=== PATIENT | female | born 1970 | race Caucasian/White ===

== ENCOUNTER → 2016-12-02 | Outpatient (CLI) | payer BC ==
[~2016-12-02] MED LIST: ALBUAER19 INH; ASPI-390 PO; BECL0.3A PO; CALC1CHW47 PO; CETI10TA84 PO; CLXUNK PO; COEN100C15 PO; DICL1GEL12 TD; FERR1TAB23 PO; KRIL1CAP7 PO; MOME50SP5 NAE; MULT1CHW4 PO; OMEP20CA59 PO; ONDA4TAB7 SL; SIMV20TA2 PO; [UNRECOGNIZED DRUG - OTHER]
[2016-12-02 13:10] LABS: BASO % 0.2 %; BASO ABS # 0.01 K/uL (0-0.2); COMPLETE YES; EOS % 3.2 %; HEMATOCRIT 40.4 % (37-47); IG% 0.2 %; LYMPH % 30.5 %; LYMPH ABS # 1.73 K/uL (1.2-3.4); MEAN CELL VOLUME 86.5 fL (80-100); MEAN CORPUSCULAR HEMOGLOBIN 28.3 pg (25-34); MEAN CORPUSCULAR HGB CONC 32.7 g/dl (32-36); MEAN PLATELET VOLUME 9.5 fL (7.4-10.4); MONO % 5.6 %; NEUT % 60.3 %; PLATELET COUNT 274 K/uL (130-400); RED BLOOD COUNT 4.67 M/uL (4.2-5.4); WHITE BLOOD COUNT 5.67 K/uL (4.8-10.8)
[2016-12-02 13:45] LABS: BLOOD UREA NITROGEN 6 mg/dl (7-18); BUN/CREATININE RATIO 8.8 (10-20); CALCIUM 9.3 mg/dl (8.5-10.1); CARBON DIOXIDE 30 mmol/L (21-32); CHLORIDE 103 mmol/L (98-107); CHOLESTEROL 271 mg/dl (0-200); CREATININE 0.72 mg/dl (0.60-1.20); GLUCOSE 83 mg/dl (70-99); POTASSIUM 4.1 mmol/L (3.5-5.1); SODIUM 138 mmol/L (136-145); TRIGLYCERIDES 206 mg/dl (0-150); VERY LOW DENSITY LIPOPROT CALC 41 mg/dl
[2016-12-02 13:49] LABS: CHOLESTEROL/HDL RATIO 3.7; HDL CHOLESTEROL 73 mg/dl; LDL CHOLESTEROL CALCULATED 157 mg/dl
[2016-12-02 14:24] LABS: URINE APPEARANCE CLOUDY (CLEAR); URINE BILIRUBIN NEG (NEG); URINE COLOR ORANGE; URINE EPITHELIAL CELL AUTO >30 /lpf (0-5); URINE NITRITE NEG (NEG); URINE PH 7.5 (4.5-7.5); URINE SPECIFIC GRAVITY 1.018 (1.000-1.030); UROBILINOGEN NEG (NEG); ZZUR CULT IF INDIC CLEAN CATCH NO
[2016-12-02 14:38] LABS: MANUAL MICROSCOPIC REQUIRED? NO; REVIEW REQ? NO; SULFASALICYLIC ACID POS (NEG)
[2016-12-02 15:12] LABS: RATIO 499.4 mcg/mg (0-30.0)
== END | disposition home or self-care (01) ==
LOC: C.LAB1850 11:57
PROVIDERS: ATTEND Internal Medicine
DX: R31.9 Hematuria, unspecified (principal); R80.9 Proteinuria, unspecified; E78.00 Pure hypercholesterolemia, unspecified; D64.9 Anemia, unspecified

== ENCOUNTER → 2016-12-22 | Outpatient (CLI) | payer BC ==
[2016-12-22 12:54] LABS: PATIENT HEIGHT 167.6 cm
[2016-12-22 14:50] LABS: URINE APPEARANCE CLEAR (CLEAR); URINE BILIRUBIN NEG (NEG); URINE COLOR YELLOW; URINE EPITHELIAL CELL AUTO >30 /lpf (0-5); URINE NITRITE NEG (NEG); URINE PH 6.5 (4.5-7.5); URINE SPECIFIC GRAVITY 1.015 (1.000-1.030); UROBILINOGEN NEG (NEG)
[2016-12-22 14:52] LABS: MANUAL MICROSCOPIC REQUIRED? NO; REVIEW REQ? NO
[2016-12-22 14:59] LABS: BUN/CREATININE RATIO 9.5 (10-20); CREATININE 0.74 mg/dl (0.60-1.20); PHOSPHORUS 2.3 mg/dl (2.5-4.9); POTASSIUM 3.6 mmol/L (3.5-5.1)
[2016-12-22 15:06] LABS: URINE TOTAL PROTEIN 48.4 mg/dl (0-11.9)
[2016-12-22 15:07] LABS: URINE PROTIEN/CREAT RATIO 0.4 (0-0.2); URINE TOTAL PROTEIN 47.7 mg/dl (0-11.9)
[2016-12-22 15:14] LABS: CREATININE 0.74 mg/dl (0.6-1.2); URINE TOTAL PROTEIN CALC 556.6 mg/24 hr (0-149.1)
[2016-12-27 09:29] LABS: ALBUMIN 3.6 G/DL (3.8-4.8); ALBUMIN % 62.66 %; ALPHA-2-GLOBULIN % 10.85 %; BETA GLOBULIN % 11.77 %; CREATININE UR 112 MG/DL (20-320); TOTAL PROTEIN 6.6 G/DL (6.2-8.3)
== END | disposition home or self-care (01) ==
LOC: C.LAB1850 12:42
PROVIDERS: ATTEND Internal Medicine Nephrology
DX: R80.9 Proteinuria, unspecified (principal)

== ENCOUNTER → 2017-02-23 | Outpatient (CLI) | payer BC ==
--- NOTE | 2017-02-24 08:28 | MAMMOGRAPHY REPORT ---
BILATERAL DIGITAL SCREENING MAMMOGRAM TOMOSYNTHESIS WITH CAD: 02/23/2017 CLINICAL HISTORY: Routine screening. Patient has no complaints. TECHNIQUE: Breast tomosynthesis in addition to standard 2D mammography was performed. Current study was also evaluated with a Computer Aided Detection (CAD) system. COMPARISON: Comparison is made to exams dated: 02/18/2016 mammogram, 02/10/2015 mammogram - [facility], 07/26/2011 mammogram, and 07/15/2011 mammogram. BREAST COMPOSITION: The tissue of both breasts is heterogeneously dense, which may obscure small mas ses. FINDINGS: No suspicious masses, calcifications, or areas of architectural distortion are noted in ei ther breast. There has been no significant interval change compared to prior exams. Bilateral benign -appearing calcifications are not significantly changed. IMPRESSION: ACR BI-RADS CATEGORY 2: BENIGN There is no mammographic evidence of malignancy. A 1 year screening mammogram is recommended. The pa tient will receive written notification of the results. Approximately 10% of breast cancers are not detected with mammography. A negative mammographic report should not delay biopsy if a clinically suggestive mass is present. Juju Haskins M.D. ah/:02/23/2017 16:26:58 Circuit Board Repair Technician: Sherly GUTIERREZ(John)(M), [facility] letter sent: Normal 1/2 BI-RADS Code: ACR BI-RADS Category 2: Benign
== END | disposition home or self-care (01) ==
LOC: C.MAMM 16:05
PROVIDERS: ATTEND Internal Medicine
DX: Z12.31 Encounter for screening mammogram for malignant neoplasm of breast (principal)

== ENCOUNTER → 2017-03-13 | Outpatient (CLI) | payer BC | END | disposition home or self-care (01) | LOC: C.PAPS 10:48 | PROVIDERS: ATTEND Obstetrics & Gynecology | DX: Z01.419 Encounter for gynecological examination (general) (routine) without abnormal findings (principal) ==

== ENCOUNTER → 2017-06-13 | Outpatient (CLI) | payer BC ==
[2017-06-13 17:43] LABS: ALBUMIN 3.3 gm/dl (3.4-5.0); BLOOD UREA NITROGEN 12 mg/dl (7-18); CARBON DIOXIDE 32 mmol/L (21-32); CREATININE 0.58 mg/dl (0.60-1.20); GLUCOSE 81 mg/dl (70-99); PHOSPHORUS 3.1 mg/dl (2.5-4.9); POTASSIUM 3.4 mmol/L (3.5-5.1); SODIUM 135 mmol/L (136-145)
== END | disposition home or self-care (01) ==
LOC: C.LAB1850 16:17
PROVIDERS: ATTEND Internal Medicine Nephrology
DX: R80.9 Proteinuria, unspecified (principal)

== ENCOUNTER → 2017-12-19 | Outpatient (CLI) | payer BC ==
--- NOTE | 2017-12-19 10:18 | DIAGNOSTIC IMAGING REPORT ---
L HAND MIN 3 VIEWS ROUTINE CLINICAL HISTORY: M19.049,M13.0 pain COMPARISON: None. DISCUSSION: The bones and joint spaces appear intact. There is no evidence of fracture, dislocation or bony disease. There is no evidence for soft tissue swelling. IMPRESSION: Negative study. The above report was generated using voice recognition software. It may contain grammatical, syntax or spelling errors. Electronically signed by: Manuelito Cameron M.D. 12/19/2017 10:17 AM Dictated Date/Time: 12/19/2017 10:17 AM
--- NOTE | 2017-12-19 10:19 | DIAGNOSTIC IMAGING REPORT ---
R HAND MIN 3 VIEWS ROUTINE CLINICAL HISTORY: M19.049,M13.0 pain COMPARISON: None. DISCUSSION: The bones and joint spaces appear intact. There is no evidence of fracture, dislocation or bony disease. There is no evidence for soft tissue swelling. IMPRESSION: Negative study. The above report was generated using voice recognition software. It may contain grammatical, syntax or spelling errors. Electronically signed by: Manuelito Cameron M.D. 12/19/2017 10:18 AM Dictated Date/Time: 12/19/2017 10:17 AM
[2017-12-19 10:38] LABS: TRANSFERRIN 292 mg/dl (200-360)
== END | disposition home or self-care (01) ==
LOC: C.RAD1850 09:26
PROVIDERS: ATTEND Internal Medicine Rheumatology
DX: M19.049 Primary osteoarthritis, unspecified hand (principal); M13.0 Polyarthritis, unspecified

== ENCOUNTER → 2018-01-01 | Outpatient (CLI) | payer BC ==
[2018-01-01 12:20] LABS: BASO % 0.3 %; BASO ABS # 0.02 K/uL (0-0.2); EOS % 3.2 %; HEMATOCRIT 40.7 % (37-47); LYMPH % 30.4 %; LYMPH ABS # 1.89 K/uL (1.2-3.4); MEAN CELL VOLUME 87.5 fL (80-100); MEAN CORPUSCULAR HGB CONC 31.9 g/dl (32-36); MEAN PLATELET VOLUME 10.3 fL (7.4-10.4); MONO % 6.3 %; MONO ABS # 0.39 K/uL (0.11-0.59); NEUT % 59.8 %; NEUT ABS # 3.72 K/uL (1.4-6.5); PLATELET COUNT 284 K/uL (130-400); RED CELL DISTRIBUTION WIDTH CV 14.1 % (11.5-14.5); RED CELL DISTRIBUTION WIDTH SD 44.7 fL (36.4-46.3); WHITE BLOOD COUNT 6.22 K/uL (4.8-10.8)
[2018-01-01 12:36] LABS: ALBUMIN 3.1 gm/dl (3.4-5.0); BLOOD UREA NITROGEN 9 mg/dl (7-18); CALCIUM 8.7 mg/dl (8.5-10.1); CARBON DIOXIDE 27 mmol/L (21-32); CHOLESTEROL 271 mg/dl (0-200); CREATININE 0.66 mg/dl (0.60-1.20); GLUCOSE 85 mg/dl (70-99); LDL CHOLESTEROL CALCULATED 161 mg/dl; PHOSPHORUS 2.9 mg/dl (2.5-4.9); POTASSIUM 3.8 mmol/L (3.5-5.1); SODIUM 137 mmol/L (136-145)
== END | disposition home or self-care (01) ==
LOC: C.LAB1850 09:43
PROVIDERS: ATTEND Internal Medicine Nephrology
DX: R80.9 Proteinuria, unspecified (principal); E78.00 Pure hypercholesterolemia, unspecified

== ENCOUNTER 2019-08-05 21:13 | Inpatient (IN) ==
[2019-08-05] MEDS ORDERED: fentaNYL citrate 100 MCG/2 ML VIAL IV STA (21:52)
[2019-08-05] MEDS ORDERED: DiphenhydrAMINE HCL 50 MG/ML VIAL IV STA (21:52)
[2019-08-05] MEDS ORDERED: ONDANSETRON INJ 2 MG/ML 2 ML VIAL IV STA (21:52)
[2019-08-05] MEDS ORDERED: SODIUM CHLORIDE 0.9% 1000ML 1,000 ML IV ONE ×2 (21:52→23:12)
--- NOTE | 2019-08-05 22:01 | Emergency Department Note ---
ED Provider Note Name: SAADIA READ Age: 49 Sex: F Arrives Via: Walk-In Informant: Patient ED Provider: Pipe Ordonez MD Chief Complaint: Right Flank Pain Impression: Calculus of distal right ureter Hydronephrosis of right kidney Acute right flank pain Medical Decision Makin yr old female with acute onset right flank pain this evening. No history of renal colic thus met CT criteria given symptoms and pain to rule out other pathology including aaa, gb, bowel, etc. CT with 6mm distal stone with moderate hydro. UA without infection. Labs OK without renal insufficiency. Continued pain despite multiple narcotics. Fluids given as well. She is to avoid NSAIDs given previous renal issues thus no toradol given. Zofran helped with nausea and benadryl as previous allergy narcotics. With intractable pain will need to come in for further management. Triage/Nursing Notes reviewed by Me Differentials:Renal colic, UTI, appendicitis, diverticulitis, mesenteric ischemia, aortic pathology, infections, inflammatory bowel disease, PUD, biliary pathology, as well as other pathologies. Vital Signs: reviewed and remarkable for htn Interventions: saline lock, fentanyl 50mcg IV, dilaudid 1mg IV, dilaudid 0.5mg x 2, NSS bolus 1 L IV x 2, zofran 4mg IV, benadryl 25mg IV x 2 Labs:Reviewed and remarkable for no significant abnormalities Imaging:[facility] Radiologist interpretation reviewed by me: Right distal 6mm ureteral stone with moderate hydro Consults:Dr William Plan: Disposition:Hospitalization. Condition: Good Blood pressure:Elevated - Referred to PCP - [place] to be Situational. History of Present Illness:49 / F arrives for evaluation of right flank pain. Patient with several hours severe right flank pain. Sudden onset. Stabbing nature. Radiates to right abdomen. Nothing makes better nor worse. Associated nausea and vomiting. No previous symptoms like this previously. No history renal stones, gallbladder disease, nor aortic issues. She had Appendix removed previously. Admits dehydration last few days from not drinking enough. Denies trauma, injury, fall. No fevers, chills, sob, cp, urinary symptoms, diarrhea, leg swelling, rashes, headache, nor other symptoms. No medications prior to arrival. ROS: See above HPI for pertinent positives & negatives. A total of 10 systems reviewed and were otherwise negative. 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 EYES: No scleral icterus, unremarkable pupils. ENT: Mucous membranes moist, no nasal congestion. NECK: No masses appreciated, nomeningismus, trachea is midline. RESPIRATORY: No dyspnea. Clear to auscultation and equal bilaterally. No wheeze, no rhonchi. CARDIOVASCULAR: Regular rate and rhythm.No murmurs, rubs, gallops appreciated. GASTROINTESTINAL: Abdomen soft, non-tender, no peritonitis.Bowel sounds positive.No masses appreciated. BACK: No midline tenderness, no CVA tenderness EXTREMITIES: Normal motion all extremities, no cyanosis, no edema. NEUROLOGIC: Alert and oriented, no acute motor or sensory deficits, no focal weakness, cranial nerves grossly intact. SKIN: No rash, no jaundice, no diaphoresis. PSYCH: Appropriate GCS: 15 ED Course: Times/Reassessments: Mutliple, continued pain though becoming a bit more comfortable. Does not feel she can tolerate pain at home despite many rounds IV narcotics. Pipe Ordonez MD Impression & Plan Calculus of distal right ureter, Hydronephrosis of right kidney, Acute right flank pain Past Med/Surg History Medical History Allergic rhinitis due to animal dander (Chronic) Allergic rhinitis due to other allergen (Chronic) Allergic rhinitis due to pollen (Chronic) Anxiety disorder (Chronic) Chronic kidney disease, stage I (Chronic) Extrinsic asthma (Chronic) Fatigue (Chronic) Fibromyalgia (Chronic) Headache (Chronic) Hiatal hernia (Chronic) History of herpes zoster Hypercholesterolemia (Chronic) Microscopic hematuria (Chronic) Palindromic rheumatism, hand (Chronic) Plantar fasciitis (Chronic) Proteinuria (Chronic) Seronegative polyarthritis (Chronic) Vitamin D deficiency, unspecified (Chronic) Surgical History History of appendectomy History of esophagogastroduodenoscopy (EGD) Hx of colonoscopy Family History Grandfather (Maternal) Acute myocardial infarction Grandmother (Maternal) Breast cancer Uterine cancer Sister Hyperlipidemia Mother Hyperlipidemia Social History Preferred Language: Korean Communication Ability: Effective Sales Representative Graphic Art Required: No Beliefs That Will Affect Care: None marital status: Current Living Situation: Family Feels Safe at Home: Yes Smoking Status: Never smoker Second Hand Exposure: No ; Hx Alcohol Use: No Hx Substance Use: No Physical Activity Frequency: Does not Exercise Results & Data Vital Signs Vital Signs - 24 hr 08/05/19 21:17 08/05/19 23:13 Temperature 36.7 C Temperature Source Oral Pulse Rate 81 Pulse Rate [Finger] 86 Respiratory Rate 20 20 Respiratory Effort / Characteristics Non-Labored Spontaneous Respiratory Depth Normal Blood Pressure 138/77 Blood Pressure [Right Arm] 141/78 H Blood Pressure Mean 97 Blood Pressure Mean [Right Arm] 99 Blood Pressure Position Sitting Blood Pressure Position [Right Arm] Lying Pulse Oximetry 98 96 Oxygen Delivery Method Room Air Sepsis Recent Fever Within 48 Hours No Sepsis New/Unexplained Change in Mental Status No Sepsis Action Taken by Nursing No Action Required Laboratory Data Result diagrams: 08/05/19 22:15 08/05/19 22:15 Lab Results 08/05/19 08/05/19 08/05/19 Range/Units 22:15 22:15 22:25 WBC 10.18 (4.8-10.8) K/uL RBC 4.41 (4.2-5.4) M/uL Hgb 12.0 (12.0-16.0) g/dL Hct 38.0 (37-47) % MCV 86.2 (80-100) fL MCH 27.2 (25-34) pg MCHC 31.6 L (32-36) g/dL RDW Std Deviation 44.2 (36.4-46.3) fL RDW Coeff of Aldo 14.0 (11.5-14.5) % Plt Count 272 (130-400) K/uL MPV 10.0 (7.4-10.4) fL Immature Gran % (Auto) 0.2 % Neut % (Auto) 69.9 % Lymph % (Auto) 20.3 % [place] % (Auto) 7.2 % Eos % (Auto) 2.2 % Baso % (Auto) 0.2 % Immature Gran # (Auto) 0.02 (0.00-0.02) K/uL Neut # (Auto) 7.12 H (1.4-6.5) K/uL Lymph # (Auto) 2.07 (1.2-3.4) K/uL [place] # (Auto) 0.73 H (0.11-0.59) K/uL Eos # (Auto) 0.22 (0-0.5) K/uL Baso # (Auto) 0.02 (0-0.2) K/uL Sodium 137 (136-145) mmol/L Potassium 3.3 L (3.5-5.1) mmol/L Chloride 104 (98-107) mmol/L Carbon Dioxide 28 (21-32) mmol/L Anion Gap 5.0 (3-11) BUN 10 (7-18) mg/dl Creatinine 0.77 (0.6-1.2) mg/dl Est Cr Clr Drug Dosing 98.1 ml/min Est GFR ( Amer) 106.6 Est GFR (Non-Af Amer) 91.9 BUN/Creatinine Ratio 12.5 (10-20) Glucose 92 (70-99) mg/dl Calcium 8.8 (8.5-10.1) mg/dl Total Bilirubin 0.2 (0.2-1) mg/dl Direct Bilirubin < 0.1 (0-0.2) mg/dl AST 15 (15-37) U/L ALT 19 (12-78) U/L Alkaline Phosphatase 109 (45-117) U/L Total Protein 7.4 (6.4-8.2) gm/dl Albumin 3.1 L (3.4-5.0) gm/dl Lipase 220 (73-393) U/L Urine Color Urine Appearance (Clear) Urine pH (4.5-7.5) Ur Specific [place] (1.000-1.030) Urine Protein (Negative) Urine Glucose (UA) (Negative) Urine Ketones (Negative) Urine Blood (Negative) Urine Nitrite (Negative) Urine Bilirubin (Negative) Urine Urobilinogen (Negative) Ur Leukocyte Esterase (Negative) Urine WBC (Auto) (0-5) /hpf Urine RBC (Auto) (0-4) /hpf U Hyaline Cast (Auto) (0-5) /lpf U Epithel Cells (Auto) (0-5) /lpf Urine Bacteria (Auto) (Negative) Urine Test Negative (Negative) 08/05/19 Range/Units 22:25 WBC (4.8-10.8) K/uL RBC (4.2-5.4) M/uL Hgb (12.0-16.0) g/dL Hct (37-47) % MCV (80-100) fL MCH (25-34) pg MCHC (32-36) g/dL RDW Std Deviation (36.4-46.3) fL RDW Coeff of Aldo (11.5-14.5) % Plt Count (130-400) K/uL MPV (7.4-10.4) fL Immature Gran % (Auto) % Neut % (Auto) % Lymph % (Auto) % [place] % (Auto) % Eos % (Auto) % Baso % (Auto) % Immature Gran # (Auto) (0.00-0.02) K/uL Neut # (Auto) (1.4-6.5) K/uL Lymph # (Auto) (1.2-3.4) K/uL [place] # (Auto) (0.11-0.59) K/uL Eos # (Auto) (0-0.5) K/uL Baso # (Auto) (0-0.2) K/uL Sodium (136-145) mmol/L Potassium (3.5-5.1) mmol/L Chloride (98-107) mmol/L Carbon Dioxide (21-32) mmol/L Anion Gap (3-11) BUN (7-18) mg/dl Creatinine (0.6-1.2) mg/dl Est Cr Clr Drug Dosing ml/min Est GFR ( Amer) Est GFR (Non-Af Amer) BUN/Creatinine Ratio (10-20) Glucose (70-99) mg/dl Calcium (8.5-10.1) mg/dl Total Bilirubin (0.2-1) mg/dl Direct Bilirubin (0-0.2) mg/dl AST (15-37) U/L ALT (12-78) U/L Alkaline Phosphatase (45-117) U/L Total Protein (6.4-8.2) gm/dl Albumin (3.4-5.0) gm/dl Lipase (73-393) U/L Urine Color Yellow Urine Appearance Clear (Clear) Urine pH 5.0 (4.5-7.5) Ur Specific [place] 1.021 (1.000-1.030) Urine Protein 2+ H (Negative) Urine Glucose (UA) Negative (Negative) Urine Ketones Negative (Negative) Urine Blood 3+ H (Negative) Urine Nitrite Negative (Negative) Urine Bilirubin Negative (Negative) Urine Urobilinogen Negative (Negative) Ur Leukocyte Esterase Negative (Negative) Urine WBC (Auto) 1-5 (0-5) /hpf Urine RBC (Auto) 10-30 H (0-4) /hpf U Hyaline Cast (Auto) 1-5 (0-5) /lpf U Epithel Cells (Auto) >30 H (0-5) /lpf Urine Bacteria (Auto) Negative (Negative) Urine Test (Negative) Administered Medications Discontinued Medications Acetaminophen (Tylenol) 650 mg PO Q4H PRN PRN Reason: pain/fever Stop: 09/05/19 01:50 Last Admin: 08/06/19 09:36 Dose: 650 mg Documented by: [id number] Admin: 08/06/19 02:58 Dose: 650 mg Documented by: [id number] Cetirizine HCl (Zyrtec) 10 mg PO PM PHAN Stop: 09/05/19 20:59 Last Admin: 08/06/19 21:23 Dose: 10 mg Documented by: [id number] Citalopram Hydrobromide (Celexa) 40 mg PO QPM PHAN Stop: 09/05/19 01:50 Last Admin: 08/06/19 21:22 Dose: 40 mg Documented by: [id number] Admin: 08/06/19 02:30 Dose: 40 mg Documented by: [id number] Diphenhydramine HCl (Benadryl) 25 mg IV NOW STA Stop: 08/05/19 21:53 Last Admin: 08/05/19 22:11 Dose: 25 mg Documented by: [id number] Diphenhydramine HCl (Benadryl) 25 mg IV NOW STA Stop: 08/06/19 00:04 Last Admin: 08/06/19 00:09 Dose: 25 mg Documented by: [id number] Fentanyl Citrate (Fentanyl Citrate) 50 mcg IV NOW STA Stop: 08/05/19 21:53 Last Admin: 08/05/19 22:11 Dose: 50 mcg Documented by: [id number] Gabapentin (Neurontin) 200 mg PO QPM PHAN Stop: 09/05/19 01:50 Last Admin: 08/06/19 21:22 Dose: 200 mg Documented by: [id number] Admin: 08/06/19 02:29 Dose: 200 mg Documented by: [id number] Hydromorphone HCl (Dilaudid) 1 mg IV NOW STA Stop: 08/05/19 22:37 Last Admin: 08/05/19 22:44 Dose: 1 mg Documented by: [id number] Hydromorphone HCl (Dilaudid) 0.5 mg IV NOW STA Stop: 08/05/19 23:02 Last Admin: 08/05/19 23:16 Dose: 0.5 mg Documented by: [id number] Hydromorphone HCl (Dilaudid) 0.5 mg IV NOW STA Stop: 08/06/19 00:04 Last Admin: 08/06/19 00:11 Dose: 0.5 mg Documented by: [id number] Sodium Chloride (Nss 1000ml) 1,000 mls @ 999 mls/hr IV .Q1H1M ONE Stop: 08/05/19 22:52 Last Infusion: 08/05/19 23:17 Dose: 0 mls/hr Documented by: [id number] Admin: 08/05/19 22:11 Dose: 999 mls/hr Documented by: [id number] Sodium Chloride (Nss 1000ml) 1,000 mls @ 999 mls/hr IV .Q1H1M ONE Stop: 08/06/19 00:12 Last Infusion: 08/06/19 00:15 Dose: 0 mls/hr Documented by: [id number] Admin: 08/05/19 23:10 Dose: 999 mls/hr Documented by: [id number] Sodium Chloride (Nss 1000ml) 1,000 mls @ 125 mls/hr IV .Q8H PHAN Stop: 09/05/19 01:50 Last Infusion: 08/07/19 12:20 Dose: 0 mls/hr Documented by: [id number] Admin: 08/07/19 08:15 Dose: 125 mls/hr Documented by: [id number] Infusion: 08/07/19 08:15 Dose: 125 mls/hr Documented by: [id number] Admin: 08/07/19 00:59 Dose: 125 mls/hr Documented by: [id number] Infusion: 08/07/19 00:59 Dose: 125 mls/hr Documented by: [id number] Infusion: 08/06/19 22:42 Dose: 125 mls/hr Documented by: [id number] Admin: 08/06/19 17:02 Dose: 125 mls/hr Documented by: [id number] Infusion: 08/06/19 17:02 Dose: 125 mls/hr Documented by: [id number] Infusion: 08/06/19 14:00 Dose: 125 mls/hr Documented by: [id number] Admin: 08/06/19 09:28 Dose: 125 mls/hr Documented by: [id number] Infusion: 08/06/19 09:28 Dose: 125 mls/hr Documented by: [id number] Admin: 08/06/19 01:58 Dose: 125 mls/hr Documented by: [id number] Ciprofloxacin (Cipro) 400 mg in 200 mls @ 100 mls/hr IV PREOP PHAN; Protocol Stop: 08/06/19 07:59 Last Infusion: 08/06/19 17:11 Dose: 0 mls/hr Documented by: [id number] Admin: 08/06/19 15:24 Dose: 100 mls/hr Documented by: [id number] Iothalamate Meglumine (Cysto-Conray Ii) Confirm Administered Dose 250 ml .ROUTE .STK-MED ONE Stop: 08/06/19 15:21 Last Admin: 08/06/19 17:01 Dose: Not Given Documented by: [id number] Ketorolac Tromethamine (Toradol) 30 mg IV Q6H PRN PRN Reason: Pain Stop: 08/11/19 01:57 Last Admin: 08/06/19 23:32 Dose: 30 mg Documented by: [id number] Admin: 08/06/19 13:04 Dose: 30 mg Documented by: [id number] Losartan Potassium (Cozaar) 100 mg PO QPM PHAN Stop: 09/05/19 01:50 Last Admin: 08/06/19 21:22 Dose: 100 mg Documented by: [id number] Admin: 08/06/19 02:30 Dose: 100 mg Documented by: [id number] Miscellaneous (Order Awaiting Action) 1 ea N/A QS [facility] Stop: 09/05/19 07:59 Last Admin: 08/06/19 09:28 Dose: Not Given Documented by: [id number] Montelukast Sodium (Singulair) 10 mg PO QPM PHAN Stop: 09/05/19 01:50 Last Admin: 08/06/19 21:22 Dose: 10 mg Documented by: [id number] Admin: 08/06/19 02:30 Dose: 10 mg Documented by: [id number] Ondansetron HCl (Zofran) 4 mg IV NOW STA Stop: 08/05/19 21:53 Last Admin: 08/05/19 22:11 Dose: 4 mg Documented by: [id number] Discharge Plan Visit Data *Final* Discharge Date/Time: 08/06/19 01:38 Chief Complaint: Abdominal Pain Stated Complaint: ABD PAIN ED Provider: Pipe Ordonez Discharge Problem: Calculus of distal right ureter, Hydronephrosis of right kidney, Acute right flank pain Patient Disposition: Admitted As Inpatient Condition: Good Discharge Instructions Interventions: ED Discharge Assessment Last Done: 08/06/19 01:38
[2019-08-05 22:29] LABS: Basophils # (auto) 0.02 K/uL (0-0.2); Basophils % (auto) 0.2 %; Eosinophils # (auto) 0.22 K/uL (0-0.5); Eosinophils % (auto) 2.2 %; Immature Granulocytes # (auto) 0.02 K/uL (0.00-0.02); Immature Granulocytes % (auto) 0.2 %; Lymphocytes # (auto) 2.07 K/uL (1.2-3.4); Lymphocytes % (auto) 20.3 %; Mean Corpuscular Hemoglobin 27.2 pg (25-34); Mean Corpuscular Hgb Conc 31.6 g/dL (32-36); Mean Corpuscular Volume 86.2 fL (80-100); Monocytes # (auto) 0.73 K/uL (0.11-0.59); Monocytes % (auto) 7.2 %; Neutrophils # (auto) 7.12 K/uL (1.4-6.5); Neutrophils % (auto) 69.9 %; Platelet Count 272 K/uL (130-400); RDW Standard Deviation 44.2 fL (36.4-46.3); Red Blood Count 4.41 M/uL (4.2-5.4); White Blood Count 10.18 K/uL (4.8-10.8)
[2019-08-05] MEDS ORDERED: HYDROmorphone INJ 1 MG/ML SYRINGE IV STA (22:36)
--- NOTE | 2019-08-05 22:42 | CT Scan Report ---
CT SCAN OF THE ABDOMEN AND PELVIS WITHOUT IV CONTRAST CLINICAL HISTORY: Right flank pain. COMPARISON STUDY: IV pyelogram dated 03/08/2013. Chest CT dated 12/20/2012. TECHNIQUE: CT scan of the abdomen and pelvis is performed from the lung bases to the proximal femora. Images are reviewed in the axial, sagittal, and coronal planes. IV contrast was not administered for this examination. A dose lowering technique was utilized adhering to the principles of ALARA. CT DOSE: 637.86 mGy.cm FINDINGS: Lung bases: The heart is normal in size and without pericardial effusion. There is no airspace consol idation or pleural effusion. There are 2 left lower lobe pulmonary nodules which measure up to 4 mm s een on images #39 and #43. These are unchanged from 2013 and of doubtful significance. Liver: The unenhanced liver is normal in size, contour, and attenuation. There is no intrahepatic catalina iary ductal dilatation. There are at least 3 low attenuation hepatic lesions which measure up to 2.6 cm which measure water density. Gallbladder: Unremarkable. Spleen: Normal in size and attenuation. Pancreas: Unremarkable. Adrenal glands: Unremarkable. Kidneys: The unenhanced kidneys are normal in size. The right kidney is slightly edematous. There is a 6 mm obstructing calculus located just above the right vesicoureteral junction seen on image #350. This causes moderate right hydroureteronephrosis. There is associated perinephric and periureteric st randing/fluid. No additional calculi are identified in either kidney. There is no left-sided hydronep hrosis. There is no evidence of contour deforming renal mass lesion. Abdominal vasculature: The abdominal aorta is normal in course and caliber. Bowel: There is moderate colonic fecal retention. No bowel obstruction is seen. The appendix is nonv isualized. Peritoneum: There is no intraperitoneal free air or abdominal ascites. There is a fat-containing umbi lical hernia. Lymphadenopathy: None. Pelvic viscera: Although decompressed, the bladder wall appears thickened and there is pericystic inf lammation. The uterus and adnexa are normal as visualized. Skeletal structures: No lytic or blastic lesions are seen. IMPRESSION: 1. There is a 6 mm obstructing calculus in the distal right ureter located just above the vesicourete ral junction. This causes moderate right hydroureteronephrosis. 2. No additional calculi are identified in either kidney. 3. Although decompressed, the bladder wall appears thickened and there is mild pericystic inflammatio n. Correlate clinically and with urinalysis for evidence of cystitis. 4. There are least 3 low attenuation hepatic lesions which were not clearly seen on the [address] . These measure water density and likely represent cysts, possibly with minimal complexity. These are of low suspicion and follow-up with a nonemergent ultrasound of the liver is recommended for further assessment. ACT 112: Negative or not required by law. Electronically signed by: Art Wilkes M.D. 08/05/2019 10:41 PM
[2019-08-05 22:44] LABS: Alanine Aminotransferase 19 U/L (12-78); Albumin Level 3.1 gm/dl (3.4-5.0); Aspartate Aminotransferase 15 U/L (15-37); BUN Creatinine Ratio 12.5 (10-20); Bilirubin Direct < 0.1 mg/dl (0-0.2); Blood Urea Nitrogen 10 mg/dl (7-18); Calcium 8.8 mg/dl (8.5-10.1); Carbon Dioxide 28 mmol/L (21-32); Chloride 104 mmol/L (98-107); Creatinine Clr Calc Pharmacy 98.1 ml/min; Est GFR (African American) 106.6; Est GFR (Non-African American) 91.9; Glucose 92 mg/dl (70-99); Lipase 220 U/L (73-393); Potassium 3.3 mmol/L (3.5-5.1); Sodium 137 mmol/L (136-145)
[2019-08-05 22:46] LABS: Pregnancy Test, Urine Negative (Negative)
[2019-08-05 22:47] LABS: Alkaline Phosphatase 109 U/L (45-117); Bilirubin,Total 0.2 mg/dl (0.2-1); Total Protein 7.4 gm/dl (6.4-8.2)
[2019-08-05 22:48] LABS: Appearance Urine Clear (Clear); Bacteria Urine Automated Negative (Negative); Bilirubin Urine Negative (Negative); Blood Urine 3+ (Negative); Color Urine Yellow; Epithelial Cell Urine Auto >30 /lpf (0-5); Glucose Urine UA Negative (Negative); Ketones Urine Negative (Negative); Leukocyte Esterase Urine Negative (Negative); Nitrite Urine Negative (Negative); Protein Urine 2+ (Negative); Specific Gravity Urine 1.021 (1.000-1.030); Urobilinogen Urine Negative (Negative)
[2019-08-05] MEDS ORDERED: HYDROmorphone INJ 0.5 MG/0.5 ML SYR IV STA (23:01)
[2019-08-06] MEDS ORDERED: DiphenhydrAMINE HCL 50 MG/ML VIAL IV STA (00:03)
[2019-08-06] MEDS ORDERED: HYDROmorphone INJ 0.5 MG/0.5 ML SYR IV STA (00:03)
--- NOTE | 2019-08-06 00:28 | History & Physical Report ---
Date of Service August 06, 2019 Assessment & Plan (1) Calculus of distal right ureter: Jaci Saenz is a 49 year old woman admitted for intractable pain secondary to acute ureterolithiasis Ureterolithiasis 6mm stone obstructing with moderate hydroureteronephrosis Pain difficult to control with opiates, will combine acetaminophen, ketorolac IV, and morphine PRN for pain control NSS 120 mls/hour, hopefully patient may pass on her own Urology consulted, patient NPO besides medicine and ice chips Asthma and allergies COntiniuing home montelukast, levocetirizine, and inhalers PRoteinuria PReserved renal function follows with Dr Lopes 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 Jaci Saenz is a 49 year old woman with past medical history significant for fibromyalgia, palindromic rheumatism, allergies, asthma, proteinuria. Patient is on as needed steroids for allergies. Uses albuterol inhaler occasionally, maybe once a week or so. who is here today for intractable flank pain. Patient started to have back pain that moved down into her flank. This started around six thirty tonight.Patient quickly started to have nausea and non bilious non bloody vomiting. Pain is made worse by certain positions laying down but it still is painful both intermittently with sharp pains (8-9/10) and constantly with at least a 4/10 pain. Decided to come into emergency department around 9- 9:30. On admission to ED patient was hemodynamically stable in severe pain. Urinalysis revealing hematuria, renal function wnl, CT obtained showing 6mm obstructing stone with mild hydroureteronephrosis. Pain relief achieved with hydromophone and morphine. Had her appendix out at 34 no complications. Lives with and kids, all healthy. Does not smoke cigarettes, no marijuana use, no alcohol use. Allergies Allergy/AdvReac Type Severity Reaction Status Date / Time Sulfa (Sulfonamide Allergy Unknown Unknown Verified 08/05/19 22:23 Antibiotics) fentanyl AdvReac Unknown Nausea/Vomi Verified 08/05/19 22:23 ting prednisone AdvReac Unknown Panic Verified 08/05/19 22:23 attack Home Medications Home Medications Medication Instructions Recorded Confirmed Type melatonin 5 mg capsule 5 mg PO HS PRN cap 10/09/18 08/08/19 History albuterol sulfate 90 mcg/actuation 2 puffs INH Q6H PRN 11/26/18 08/08/19 History aerosol inhaler acetaminophen 500 mg tablet 1,000 mg PO Q6H PRN tab 12/20/18 08/08/19 History gabapentin 100 mg capsule 200 mg PO QPM #180 cap 05/29/19 08/08/19 Rx Prilosec OTC 20 mg PO BID PRN 08/05/19 08/08/19 History Qvar RediHaler 2 puffs INH BID PRN 08/05/19 08/08/19 History citalopram 40 mg PO QPM 08/05/19 08/08/19 History levocetirizine 5 mg PO QPM 08/05/19 08/08/19 History losartan 100 mg PO QPM 08/05/19 08/08/19 History montelukast 10 mg PO QPM 08/05/19 08/08/19 History norelgestromin-ethin.estradiol 1 patch TOPICAL Q7D 08/05/19 08/08/19 History ciprofloxacin HCl 500 mg PO BID 3 Days #6 tab 08/07/19 08/08/19 Rx prednisone 2.5 mg tablet 2.5 mg PO DAILY PRN #20 tab 08/07/19 08/08/19 Rx Past Med/Surg History Medical History Allergic rhinitis due to animal dander (Chronic) Allergic rhinitis due to other allergen (Chronic) Allergic rhinitis due to pollen (Chronic) Anxiety disorder (Chronic) Chronic kidney disease, stage I (Chronic) Extrinsic asthma (Chronic) Fatigue (Chronic) Fibromyalgia (Chronic) Headache (Chronic) Hiatal hernia (Chronic) History of herpes zoster Hypercholesterolemia (Chronic) Microscopic hematuria (Chronic) Palindromic rheumatism, hand (Chronic) Plantar fasciitis (Chronic) Proteinuria (Chronic) Seronegative polyarthritis (Chronic) Vitamin D deficiency, unspecified (Chronic) Surgical History History of appendectomy History of esophagogastroduodenoscopy (EGD) Hx of colonoscopy Family History Grandfather (Maternal) Acute myocardial infarction Grandmother (Maternal) Breast cancer Uterine cancer Sister Hyperlipidemia Mother Hyperlipidemia Social History Preferred Language: Kinyarwanda Communication Ability: Effective Client Associate Required: No Beliefs That Will Affect Care: None marital status: Current Living Situation: Family Feels Safe at Home: Yes Smoking Status: Never smoker Second Hand Exposure: No ; Hx Alcohol Use: No Hx Substance Use: No Physical Activity Frequency: Does not Exercise Review of Systems Constitutional: no fever, no chills and no weakness Eyes: no problem reported Ear, Nose, Mouth, Throat: no problem reported Respiratory: no cough, no dyspnea and no wheezing Cardiovascular: no chest pain, no dyspnea, no lightheadedness, no calf pain and no problem reported Gastrointestinal: + nausea and + vomiting Genitourinary: no dysuria, no difficulty urinating and no urinary urgency Physical Exam Constitutional: well developed and well nourished patient in clear discomfort Eyes: PERRL, conjunctivae normal, anicteric sclerae ENMT: external ear and nose normal, oropharynx normal Neck: normal visual inspection Respiratory: normal respiratory effort, lungs clear to auscultation Cardiovascular: RRR, no murmur, no edema Vessels: normal peripheral pulses and dorsalis pedis pulses present Extremities: no calf tenderness and no pedal edema Gastrointestinal (Abdomen): normal bowel sounds, soft, nontender, no hepatosplenomegaly NO costovertebral angle tenderness Skin: no rashes, warm and dry Results & Data Vital Signs (Past 12 Hours) Vital Signs Temp Pulse Pulse Resp BP BP Pulse Ox 08/06/19 00:12 88 20 150/92 H 95 08/05/19 23:13 86 20 141/78 H 96 08/05/19 21:17 36.7 C 81 20 138/77 98 Supervising Physician Co-Signing Physician Notes Attending addendum: I have physically seen this patient, have supervised the medical residents activities, and agree with the H&P unless as otherwise noted. Assessment and Plan: 6 mm distal right ureteral calculus/moderate hydroureteronephrosis- Continue IV fluid rehydration with NSS. Follow urine culture and sensitivity. Acetaminophen 650 mg p.o. every 6 hours. Mild pain or temperature. Toradol 30 mg IV every 6 hours PRN moderate pain Morphine sulfate 4 mg IV every 4 hours as needed severe pain. Zofran 4 mg IV every 6 hours as needed. Famotidine 20 mg IV every 12 hours Consult urology. Remainder of orders and notations as noted Resident Activity Tracking Resident Involvement: Resident Care Provided Care Provided: Adult [facility]
[2019-08-06] MEDS ORDERED: ONDANSETRON INJ 2 MG/ML 2 ML VIAL IV PRN ×2 (01:51→14:23)
[2019-08-06] MEDS ORDERED: MoRPHine SULFATE 4 MG/ML 1 ML CARP\\VIAL IV PRN (01:51)
[2019-08-06] MEDS ORDERED: POLYETHYLENE (MIRALAX) 17 GM PACK PO PRN (01:51)
[2019-08-06] MEDS ORDERED: NON-FORMULARY MEDICATION (Melatonin 5 MG) PO PRN (01:51)
[2019-08-06] MEDS ORDERED: ALBUTEROL HFA 8 GM INHALER INH PRN (01:51)
[2019-08-06] MEDS: SODIUM CHLORIDE 0.9% 1000ML 1,000 ML IV SCH ×3 (01:58→17:02)
[2019-08-06] MEDS ORDERED: PANTOprazole 40 MG TAB PO PRN (02:01)
[2019-08-06] MEDS ORDERED: FLUTICASONE FUROATE 100MCG 14 PUFFS/INHALER INH PRN (02:17)
[2019-08-06] MEDS: GABAPENTIN 100 MG CAP PO SCH ×2 (02:29→21:22)
[2019-08-06] MEDS: CITALOPRAM 40 MG TAB PO SCH ×2 (02:30→21:22)
[2019-08-06] MEDS: MONTELUKAST SODIUM 10 MG TABLET PO SCH ×2 (02:30→21:22)
[2019-08-06] MEDS: LOSARTAN POTASSIUM 50 MG TAB PO SCH ×2 (02:30→21:22)
[2019-08-06] MEDS: ACETAMINOPHEN 325 MG TAB PO PRN ×2 (02:58→09:36)
[2019-08-06] MEDS ORDERED: CIPROFLOXACIN / D5W 400 MG/200 ML BAG IV SCH (06:00)
--- NOTE | 2019-08-06 07:22 | Urology Consultation ---
Date of Consultation August 06, 2019 Assessment & Plan (1) Hydronephrosis of right kidney: (2) Calculus of distal right ureter: (3) Acute right flank pain: 49 year-old female patient admitted with intractable pain secondary to 6 mm obstructing right distal ureteral stone with moderate hydronephrosis. -Keep NPO. -Strain all urine. -Pain control and IV hydration. -KUB ordered STAT. Findings reviewed with Dr. Warner. Given her intractable pain with associated vomiting in the context of an obstructing 6 mm right distal ureteral stone, will proceed with OR for cystoscopy, right retrograde pyelogram and right stent placement, possible ureteroscopy, laser lithotripsy, stone basketing, possible ureteral dilation depending on findings. Risks and benefits to be reviewed with patient by Dr. Warner. OR notified. Preoperative CXR and EKG ordered. Will cover with IV Ciprofloxacin preoperatively. Patient in agreement with plan. History of Present Illness Reason for Consultation: Obstructive ureteral stone with hydronephrosis Attending Physician: Tristan William MD History of Present Illness 49 year-old female with past medical history significant for fibromyalgia, palindromic rheumatism, allergies, asthma, proteinuria, admitted under hospital medicine on 08/06/19 with obstructing 6 mm right distal ureteral stone with moderate hydronephrosis. Patient reports her symptoms began with right flank pain radiating into her abdomen. She also developed nausea and vomiting. Denied fevers or chills. Patient has not followed with a urologist in the past. Denies history of renal stones. Denies immediate family history of renal stones. Chart review: Afebrile Wbc 10.18 Hgb 12.0 Creatinine .077 Urine culture pending. Urinalysis not indicative of infection. Ct abd/pelvis: IMPRESSION: 1. There is a 6 mm obstructing calculus in the distal right ureter located just above the vesicoureteral junction. This causes moderate right hydroureteronephrosis. 2. No additional calculi are identified in either kidney. 3. Although decompressed, the bladder wall appears thickened and there is mild pericystic inflammation. Correlate clinically and with urinalysis for evidence of cystitis. 4. There are least 3 low attenuation hepatic lesions which were not clearly seen on the [address] These measure water density and likely represent cysts, possibly with minimal complexity. These are of low suspicion and follow-up with a nonemergent ultrasound of the liver is recommended for further assessment. KUB ordered this am - results pending. Patient alert, awake, non-toxic appearing. She feels a "little" better this morning. Pain continues to her right flank area, reports discomfort as an ache. Denies fevers or chills. Denies nausea or vomiting. Last emesis was last evening. She has been NPO since midnight. Denies dizziness or lightheadedness. Denies dysuria, frequency, or urgency. Does report hematuria but attributed this to her menstrual cycle. She reports there is no chance of . Agreeable to proceed with intervention today. She denies additional urologic concerns today. Allergies Allergy/AdvReac Type Severity Reaction Status Date / Time Sulfa (Sulfonamide Allergy Unknown Unknown Verified 08/05/19 22:23 Antibiotics) fentanyl AdvReac Unknown Nausea/Vomi Verified 08/05/19 22:23 ting prednisone AdvReac Unknown Panic Verified 08/05/19 22:23 attack Home Medications Home Medications Medication Instructions Recorded Confirmed Type melatonin 5 mg capsule 5 mg PO HS PRN cap 10/09/18 08/05/19 History albuterol sulfate 90 mcg/actuation 2 puffs INH Q6H PRN 11/26/18 08/05/19 History aerosol inhaler acetaminophen 500 mg tablet 1,000 mg PO Q6H PRN tab 12/20/18 08/05/19 History gabapentin 100 mg capsule 200 mg PO QPM #180 cap 05/29/19 08/05/19 Rx beclomethasone dipropionate [Qvar 2 puffs INH BID PRN 08/05/19 08/05/19 History RediHaler] citalopram 40 mg PO QPM 08/05/19 08/05/19 History levocetirizine 5 mg PO QPM 08/05/19 08/05/19 History losartan 100 mg PO QPM 08/05/19 08/05/19 History montelukast 10 mg PO QPM 08/05/19 08/05/19 History norelgestromin-ethin.estradiol 1 patch TOPICAL Q7D 08/05/19 08/05/19 History omeprazole magnesium [Prilosec OTC] 20 mg PO BID PRN 08/05/19 08/05/19 History prednisone 2.5 mg PO DAILY PRN 08/05/19 08/05/19 History Patient History Medical History Allergic rhinitis due to animal dander (Chronic) Allergic rhinitis due to other allergen (Chronic) Allergic rhinitis due to pollen (Chronic) Anxiety disorder (Chronic) Chronic kidney disease, stage I (Chronic) Extrinsic asthma (Chronic) Fatigue (Chronic) Fibromyalgia (Chronic) Headache (Chronic) Hiatal hernia (Chronic) History of herpes zoster Hypercholesterolemia (Chronic) Microscopic hematuria (Chronic) Palindromic rheumatism, hand (Chronic) Plantar fasciitis (Chronic) Proteinuria (Chronic) Seronegative polyarthritis (Chronic) Vitamin D deficiency, unspecified (Chronic) Surgical History History of appendectomy History of esophagogastroduodenoscopy (EGD) Hx of colonoscopy Family History Grandfather (Maternal) Acute myocardial infarction Grandmother (Maternal) Breast cancer Uterine cancer Sister Hyperlipidemia Mother Hyperlipidemia Social History Preferred Language: Portuguese Communication Ability: Effective Pharmacy Aide Required: No Beliefs That Will Affect Care: None marital status: Current Living Situation: Family Other Information That Helps Us Care for You: No Feels Safe at Home: Yes Safety Concerns: Feels Safe At This Time Smoking Status: Never smoker Second Hand Exposure: No ; Hx Alcohol Use: No Hx Substance Use: No Physical Activity Frequency: Does not Exercise Review of Systems Constitutional: as per Subjective / HPI; no fever and no chills Ear, Nose, Mouth, Throat: no dizziness and no problem reported Respiratory: no cough and no dyspnea Cardiovascular: no chest pain and no edema Gastrointestinal: as per Subjective / HPI, + nausea and + vomiting Genitourinary: as per Subjective / HPI Integumentary: no rash and no wounds Neurologic: no dizziness and no syncope Hematologic / Lymphatic: no easy bleeding and no easy bruising Allergy / Immunological: no cough and no problem reported Physical Exam Constitutional: well developed and well nourished; no acute distress and not ill appearing ENMT: Ears: no external ear abnormality Nose: no external nose abnormality Neck: normal visual inspection and trachea midline Respiratory: normal respiratory effort and able to speak in complete sentences; no respiratory distress and no audible wheezes Cardiovascular: Extremities: no calf tenderness and no edema Gastrointestinal (Abdomen): Inspection/Auscultation: abdomen normal to inspection; abdomen not distended Percussion/Palpation: abdomen soft; abdomen nontender and no guarding Musculoskeletal: Moves all extremities without difficulty. Skin: No visible rashes, lesions, or wounds noted. Neurologic: moves all extremities and awake Psychiatric: Orientation: alert, oriented x 3 and cooperative Affect: euthymic affect Genitourinary: + CVA tenderness (Positive CVA tenderness to right. ) Results & Data Vital Signs (Past 12 Hours) Vital Signs Temp Pulse Pulse Resp BP BP Pulse Ox 08/06/19 07:13 36.9 C 78 16 119/71 95 08/06/19 02:00 37 C 84 18 138/80 97 08/06/19 01:01 88 16 106/84 98 08/06/19 00:12 88 20 150/92 H 95 08/05/19 23:13 86 20 141/78 H 96 08/05/19 21:17 36.7 C 81 20 138/77 98 PG Care Time/CCT Total # of Minutes Spent Total Time Spent with Patient: Total time spent is greater than 50% in coordination of care (as documented) at patient's floor/unit and/or counseling patient: Coding Level of Care Code 12698 Inpt Consult Level 4 Diagnoses Hydronephrosis of right kidney N13.30 Calculus of distal right ureter N20.1 Acute right flank pain R10.9
--- NOTE | 2019-08-06 07:55 | XRay Report ---
XR chest 2V PA/lateral CLINICAL HISTORY: Preop preoperative evaluation COMPARISON STUDY: No previous studies for comparison. FINDINGS: The bones soft tissues and hemidiaphragms are normal. The cardiomediastinal silhouette is n ormal. The lungs are clear. The pulmonary vasculature is normal. IMPRESSION: Negative chest. ACT 112: Negative or not required by law. The above report was generated using voice recognition software. It may contain grammatical, syntax or spelling errors. Electronically signed by: Manuelito Cameron M.D. 08/06/2019 7:54 AM
--- NOTE | 2019-08-06 07:57 | XRay Report ---
XR KUB/Abdomen 1 view CLINICAL HISTORY: Right ureteral stone nephrocalcinosis COMPARISON STUDY: 03/08/2013. CT abdomen and pelvis 08/05/2019. FINDINGS: The soft tissues, psoas shadows, renal outlines and intestinal gas pattern appear normal. T here is no evidence for bowel obstruction. No abnormal abdominal calcifications are seen. There is a possible distal right ureteral 4 mm calculus. IMPRESSION: Possible 4 mm distal right ureteral calculus. ACT 112: Negative or not required by law. The above report was generated using voice recognition software. It may contain grammatical, syntax or spelling errors. Electronically signed by: Manuelito Cameron M.D. 08/06/2019 7:55 AM
[2019-08-06] MEDS: KETOROLAC 30 MG/ML VIAL IV PRN ×2 (13:04→23:32)
[2019-08-06] MEDS ORDERED: LABETALOL HCL IV 5 MG/ML 20ML IV PRN (14:23)
[2019-08-06] MEDS ORDERED: ATROPINE SULFATE 0.1 MG/ML 10ML SYR IV PRN (14:23)
[2019-08-06] MEDS ORDERED: HYDROmorphone INJ 1 MG/ML SYRINGE IV PRN (14:23)
[2019-08-06] MEDS ORDERED: PHENYLEPHRINE 100MCG/ML 5ML SYR IV PRN (14:23)
[2019-08-06] MEDS ORDERED: ePHEDrine sulfate 50 MG/ML AMP IV PRN (14:23)
[2019-08-06] MEDS ORDERED: PROPOFOL IV EMULSION 10 MG/ML 20 ML VIAL IV ONE ×2 (14:25→15:48)
[2019-08-06] MEDS ORDERED: LIDOCAINE HCL 2% 2 ML VIAL/AMP(20MG/ML) INFIL ONE (14:25)
[2019-08-06] MEDS ORDERED: MIDAZOLAM HCL 1 MG/ML 2ML VIAL ONE (14:25)
--- NOTE | 2019-08-06 14:25 | Anesthesiology Consultation ---
Date of Service August 06, 2019 Assessment & Plan (1) Encounter for pre-operative examination: Chart Review Chart Review: Acceptable Risk for Surgery and Patient NOT seen in Pre Admission Testing Consults Requested none History Surgery Operation Date: 08/06/19 15:10 Proposed Procedures p Cystoscopy, Right Retrograde, Right Stent Placement, Possible Ureteroscopy, Possible Laser Lithotripsy - Damien Warner MD Height/Weight Height: 5 ft 6 in Weight: 83.9 kg Allergies Allergy/AdvReac Type Severity Reaction Status Date / Time Sulfa (Sulfonamide Allergy Unknown Unknown Verified 08/05/19 22:23 Antibiotics) fentanyl AdvReac Unknown Nausea/Vomi Verified 08/05/19 22:23 ting prednisone AdvReac Unknown Panic Verified 08/05/19 22:23 attack Medications Home Medications Medication Instructions Recorded Confirmed Last Taken melatonin 5 mg capsule 5 mg PO HS PRN cap 10/09/18 08/05/19 Unknown albuterol sulfate 90 mcg/actuation 2 puffs INH Q6H PRN 11/26/18 08/05/19 Unknown aerosol inhaler acetaminophen 500 mg tablet 1,000 mg PO Q6H PRN tab 12/20/18 08/05/19 Unknown gabapentin 100 mg capsule 200 mg PO QPM #180 cap 05/29/19 08/05/19 Unknown beclomethasone dipropionate [Qvar 2 puffs INH BID PRN 08/05/19 08/05/19 Unknown RediHaler] citalopram 40 mg PO QPM 08/05/19 08/05/19 Unknown levocetirizine 5 mg PO QPM 08/05/19 08/05/19 Unknown losartan 100 mg PO QPM 08/05/19 08/05/19 Unknown montelukast 10 mg PO QPM 08/05/19 08/05/19 Unknown norelgestromin-ethin.estradiol 1 patch TOPICAL Q7D 08/05/19 08/05/19 Unknown omeprazole magnesium [Prilosec OTC] 20 mg PO BID PRN 08/05/19 08/05/19 Unknown prednisone 2.5 mg PO DAILY PRN 08/05/19 08/05/19 Unknown Active Medications Generic Name Dose Route Start Last Admin Trade Name Freq PRN Reason Stop Dose Admin Acetaminophen 650 mg 08/06/19 01:51 08/06/19 09:36 Tylenol PO 04/16/20 01:50 650 mg Q4H PRN Administration pain/fever Citalopram Hydrobromide 40 mg 08/06/19 01:51 08/06/19 02:30 Celexa PO 09/05/19 01:50 40 mg QPM PHAN Administration Gabapentin 200 mg 08/06/19 01:51 08/06/19 02:29 Neurontin PO 09/05/19 01:50 200 mg QPM PHAN Administration Sodium Chloride 1,000 mls @ 125 mls/hr 08/06/19 01:51 08/06/19 14:00 Nss 1000ml IV 09/05/19 01:50 125 mls/hr .Q8H PHAN Infusion Ketorolac Tromethamine 30 mg 08/06/19 01:58 08/06/19 13:04 Toradol IV 08/11/19 01:57 30 mg Q6H PRN Administration Pain Losartan Potassium 100 mg 08/06/19 01:51 08/06/19 02:30 Cozaar PO 09/05/19 01:50 100 mg QPM PHAN Administration Montelukast Sodium 10 mg 08/06/19 01:51 08/06/19 02:30 Singulair PO 09/05/19 01:50 10 mg QPM PHAN Administration NPO Date Last Intake of Fluids: 08/05/19 Time Last Intake of Fluids: 23:59 Last Intake of Fluids Comment: sips with meds this morning Date Last Intake of Solids: 08/05/19 Time Last Intake of Solids: 16:00 Past Medical History Medical History Allergic rhinitis due to animal dander (Chronic) Allergic rhinitis due to other allergen (Chronic) Allergic rhinitis due to pollen (Chronic) Anxiety disorder (Chronic) Chronic kidney disease, stage I (Chronic) Extrinsic asthma (Chronic) Fatigue (Chronic) Fibromyalgia (Chronic) Headache (Chronic) Hiatal hernia (Chronic) History of herpes zoster Hypercholesterolemia (Chronic) Microscopic hematuria (Chronic) Palindromic rheumatism, hand (Chronic) Plantar fasciitis (Chronic) Proteinuria (Chronic) Seronegative polyarthritis (Chronic) Vitamin D deficiency, unspecified (Chronic) Past Family History Family History Grandfather (Maternal) Acute myocardial infarction Grandmother (Maternal) Breast cancer Uterine cancer Sister Hyperlipidemia Mother Hyperlipidemia Past Surgical History Surgical History History of appendectomy History of esophagogastroduodenoscopy (EGD) Hx of colonoscopy Social History Smoking Status: Never smoker Hx Alcohol Use: No Hx Substance Use: No Physical Exam Vital Signs Last Vital Signs Temp 36.9 C 08/06/19 07:13 Pulse 78 08/06/19 07:13 Resp 16 08/06/19 07:13 BP 119/71 08/06/19 07:13 Pulse Ox 95 08/06/19 07:13 Testing Laboratory Results 08/05/19 22:15 08/05/19 22:15 Urine Color Yellow 08/05/19 22:25 Urine Appearance Clear (Clear) 08/05/19 22:25 Urine pH 5.0 (4.5-7.5) 08/05/19 22:25 Ur Specific [place] 1.021 (1.000-1.030) 08/05/19 22:25 Urine Protein 2+ (Negative) H 08/05/19 22:25 Urine Glucose (UA) Negative (Negative) 08/05/19 22:25 Urine Ketones Negative (Negative) 08/05/19 22:25 Urine Nitrite Negative (Negative) 08/05/19 22:25 Ur Leukocyte Esterase Negative (Negative) 08/05/19 22:25 Urine WBC (Auto) 1-5 /hpf (0-5) 08/05/19 22:25 Urine RBC (Auto) 10-30 /hpf (0-4) H 08/05/19 22:25 U Hyaline Cast (Auto) 1-5 /lpf (0-5) 08/05/19 22:25 U Epithel Cells (Auto) >30 /lpf (0-5) H 08/05/19 22:25 Urine Bacteria (Auto) Negative (Negative) 08/05/19 22:25 Urine Test Negative (Negative) 08/05/19 22:25 08/05/19 22:25 Urine Test Negative Electrocardiogram Date: 08/06/19 Findings: + NSR @ (71) Chest X-Ray Date: 08/06/19 XR chest 2V PA/lateral CLINICAL HISTORY: Preop preoperative evaluation COMPARISON STUDY: No previous studies for comparison. FINDINGS: The bones soft tissues and hemidiaphragms are normal. The cardiomediastinal silhouette is normal. The lungs are clear. The pulmonary vasculature is normal. IMPRESSION: Negative chest. ACT 112: Negative or not required by law. The above report was generated using voice recognition software. It may contain grammatical, syntax or spelling errors. Electronically signed by: Manuelito Cameron M.D. 08/06/2019 7:54 AM Dictated: 08/06/19 0754 Transcribed: 08/06/19 0754
[2019-08-06] MEDS ORDERED: IOTHALAMATE MEGLUMINE II 17.2% 250 ML VIAL ONE (15:20)
--- NOTE | 2019-08-06 15:23 | History & Physical Bridge Note ---
Date of Service August 06, 2019 History & Physical Bridge Note I have examined the patient, reviewed the History & Physical and in the interval since the performance of the History & Physical I have noted the following changes of clinical significance: no changes noted
[2019-08-06] MEDS ORDERED: ONDANSETRON INJ 2 MG/ML 2 ML VIAL ONE (15:49)
[2019-08-06] MEDS ORDERED: DEXAMETHASONE SOD INJ 4 MG/ML VIAL ONE (15:49)
--- NOTE | 2019-08-06 16:08 | Operative Report ---
PG Post Operative Report Pre & Post Diagnosis Operation Date: 08/06/19 15:10 Pre-Op Diagnosis: NEPHROLITHIASIS, HYDRONEPHROSIS Post-Op Diagnosis: NEPHROLITHIASIS, HYDRONEPHROSIS I identified the patient and participated in the time-out.: Yes Procedure Operation Date: 08/06/19 15:10 Actual Procedures p Cystoscopy, Right Retrograde, Right Stent Placement, semi-ridged Ureteroscopy, Laser Lithotripsy(Right) - Damien Warner MD Surgeon Rohan Warner MD Php Architect none Estimated Blood Loss 0 Findings Consistent with Post-Op Diagnosis Specimens none Description of Procedure The patient was identified in the preoperative holding area, appropriate informed consents were reviewed and completed and the patient was transferred to the operative suite. Upon arrival, appropriate antibiotics and anesthesia were administered and the patient was placed in dorsal lithotomy position and prepped and draped in sterile fashion. To begin the case I passed a 22 Belgian cystoscope with 30 degree lens. Inspection revealed healthy-appearing mucosa without any stones within the bladder. She did have some mounding of the distal right ureter just proximal to the ureteral orifice. Following my visual inspection I intubated the right UO with a sensor wire and a 5 Belgian open-ended catheter. After advancing the wire to the kidney under fluoroscopic guidance I withdrew the 5 Belgian open-ended catheter and remove the cystoscope. I reentered with a semirigid ureteroscope which I carefully guided into the distal right ureter. I encountered a yellow appearing calculus approximately 5 mm proximal to the UO. This was obstructing the ureter and impacted into the wall of the ureter. I passed a 365 m laser fiber and I successfully fragmented the stone freeing it from the ureter and clearing all pieces out of the ureter. Repeat inspection of the site of impaction revealed minimal residual irritation. After passing the scope maximally I saw no other stones in the proximal ureter or mid ureter. I concluded the case by placing a 6 Belgian by 24 cm double-J ureteral stent. A string was left attached to the distal aspect of the stent. This was affixed to her right inner thigh. I emptied her bladder and concluded the case. She was extubated and taken to the PACU in stable condition. There were no compl ications. I attest to the content of the Intraoperative Record and any orders documented therein. Any exceptions are noted below.
--- NOTE | 2019-08-06 16:28 | Fluoroscopy Report ---
FL retrograde includes kub CLINICAL HISTORY: CYSTO, STENT, LASERright ureteral calculus COMPARISON STUDY: 08/06/2019 FLUOROSCOPY TIME: 2.2 seconds. NUMBER OF FLUOROSCOPIC IMAGES: 2 FINDINGS: 2 intraoperative fluoroscopic spot images demonstrate the proximal pigtail right-sided neph roureteral stent IMPRESSION: Intraprocedural fluoroscopic spot images demonstrating the proximal pigtail of a right-s ided nephroureteral stent. ACT 112: Negative or not required by law. Electronically signed by: Ryan Garcia M.D. 08/06/2019 4:26 PM
--- NOTE | 2019-08-06 16:49 | Anesthesiology Progress Note ---
Date of Service August 06, 2019 Anesthesia Post Procedure Vital Signs Vital Signs: Temp Pulse Pulse Pulse Resp BP BP 08/06/19 16:40 36.5 C 78 15 118/66 08/06/19 16:30 85 15 117/63 08/06/19 16:20 69 15 103/58 L 08/06/19 16:10 70 17 100/59 L 08/06/19 16:04 36.2 C L 84 18 121/67 08/06/19 14:30 37.2 C 73 18 121/65 08/06/19 07:13 36.9 C 78 16 119/71 08/06/19 02:00 37 C 84 18 138/80 08/06/19 01:01 88 16 106/84 08/06/19 00:12 88 20 150/92 H 08/05/19 23:13 86 20 141/78 H 08/05/19 21:17 36.7 C 81 20 138/77 Pulse Ox 08/06/19 16:40 98 08/06/19 16:30 99 08/06/19 16:20 100 08/06/19 16:10 100 08/06/19 16:04 100 08/06/19 14:30 98 08/06/19 07:13 95 08/06/19 02:00 97 08/06/19 01:01 98 08/06/19 00:12 95 08/05/19 23:13 96 08/05/19 21:17 98 Pain Intensity Right Flank: Pain Intensity: 2 Transfer of Care Handoff Completed per policy Notes Mental Status: alert / awake / arousable Patient Amnestic to Procedure: Yes Nausea / Vomiting: adequately controlled Pain: adequately controlled Airway Patency, RR, SpO2: stable & adequate BP & HR: stable & adequate Hydration State: stable & adequate Anesthetic Complications: no major complications apparent and Pt Satisfied with anesthetic care
--- NOTE | 2019-08-06 20:32 | Hospitalist Progress Note ---
Date of Service August 06, 2019 Assessment & Plan (1) Calculus of distal right ureter: - CT - 6 mm obstructing calculus in the distal R ureter located just above the vesicoureteral junction with moderate R hydroureteronephrosis - S/P Cystoscopy with Stent - Continue pain management; Continue IVF - UCx pending - treated with pre-op Cipro but not bacteria noted on dip - Urology following - appreciate input (2) Allergic rhinitis due to other allergen: - STABLE - Continue Albuterol PRN; Cetirizine 10 mg daily (3) Proteinuria: - STABLE - follows with Dr. Lopes -- Thought possibly related to underlying glomerular disease - Continue Losartan 100 mg daily Disposition: From home - pending pain control and any further urology needs possibly home tomorrow Admission and Anticipated Discharge Date Admission Date: August 06, 2019 Subjective Reports pain was doing better this AM. Saw her prior to her procedure. 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 Was NPO during my visit. No N/V. Review of Systems Constitutional: no fever and no chills Respiratory: no cough and no dyspnea Cardiovascular: no chest pain, no palpitations, no lightheadedness and no edema Gastrointestinal: no abdominal pain, no nausea, no vomiting, no constipation and no diarrhea/loose stools Genitourinary: +flank pain Physical Exam Constitutional: WD/WN, vitals as above Eyes: + anicteric sclerae Neck: trachea midline Respiratory: normal respiratory effort, lungs clear to auscultation Cardiovascular: RRR, no murmur, no edema Gastrointestinal (Abdomen): Inspection/Auscultation: normal bowel sounds Percussion/Palpation: abdomen soft; abdomen nontender Musculoskeletal: no cyanosis or clubbing, extremities motor strength 5/5 Skin: no rashes, warm and dry + rash Neurologic: moves all extremities Psychiatric: A+Ox3, euthymic affect Genitourinary: + CVA tenderness (mild R sided) Results & Data ([facility]) Vital Signs (Past 12 Hours) Vital Signs Temp Pulse Pulse Resp BP Pulse Ox 08/06/19 18:50 37 C 76 16 125/66 96 08/06/19 17:51 37 C 77 16 116/69 96 08/06/19 17:20 36.9 C 90 16 123/75 95 08/06/19 16:50 36.6 C 80 16 116/72 94 08/06/19 16:40 36.5 C 78 15 118/66 98 08/06/19 16:30 85 15 117/63 99 08/06/19 16:20 69 15 103/58 L 100 08/06/19 16:10 70 17 100/59 L 100 08/06/19 16:04 36.2 C L 84 18 121/67 100 08/06/19 14:30 37.2 C 73 18 121/65 98 PG Care Time/CCT Total # of Minutes Spent Total Time Spent with Patient: Total time spent is greater than 50% in coordination of care (as documented) at patient's floor/unit and/or counseling patient: Coding Level of Care Code None Diagnoses Calculus of distal right ureter N20.1 Allergic rhinitis due to other allergen J30.89 Proteinuria R80.9
[2019-08-06] MEDS ORDERED: CETIRIZINE HCL 10 MG TABLET PO SCH (21:00)
--- NOTE | 2019-08-06 22:38 | Electrocardiogram Report ---
Test Reason : Blood Pressure : / mmHG Vent. Rate : 071 BPM Atrial Rate : 071 BPM P-R Int : 148 ms QRS Dur : 082 ms QT Int : 412 ms P-R-T Axes : 063 067 026 degrees QTc Int : 447 ms Normal sinus rhythm Nonspecific T wave abnormality When compared with ECG of 30-DEC-2012 03:45, QT has shortened Confirmed by Ari Gomez ([id number]) on 08/06/2019 10:38:08 PM Referred By: REFERRED SELF Confirmed By:Ari Gomez
[2019-08-07] MEDS: SODIUM CHLORIDE 0.9% 1000ML 1,000 ML IV SCH ×2 (00:59→08:15)
--- NOTE | 2019-08-07 09:55 | Urology Progress Note ---
Date of Service August 07, 2019 Assessment & Plan (1) Calculus of distal right ureter: 49 yo F POD #1 right ureteroscopy, laser lithotripsy, and stent placement. Doing well, progressing as expected. Final UC&S with moderate counts mixed probable skin trinh Recommend d/c with PO antibiotics x 3 days Clinical course reviewed, all questions answered Will arrange follow-up in clinic with our service to remove tethered stent Thank you for allowing us to participate in the acute care of Ms. Saenz. Please reconsult us with additional questions, concerns or changes in patient status. Subjective 49 yo F POD #1 right ureteroscopy, laser lithotripsy, and stent placement. Awake, alert, sitting in bed. No issues overnight. Mild right flank discomfort. No abdominal or suprapubic pain. Voiding spontaneously. Mild dysuria and frequency. Some hematuria. No f/c/n/v. Review of Systems Constitutional: as per Subjective / HPI Gastrointestinal: as per Subjective / HPI Genitourinary: as per Subjective / HPI Physical Exam Constitutional: well developed and well nourished; no acute distress and not ill appearing Respiratory: normal respiratory effort and able to speak in complete sentences; no respiratory distress and no labored breathing Cardiovascular: Extremities: no pedal edema Gastrointestinal (Abdomen): Inspection/Auscultation: abdomen normal to inspection; abdomen not distended Percussion/Palpation: abdomen soft; abdomen nontender and no guarding Neurologic: moves all extremities and awake Psychiatric: A+Ox3, euthymic affect Genitourinary: no CVA tenderness Results & Data Vital Signs (Past 12 Hours) Vital Signs Temp Pulse Resp BP Pulse Ox 08/07/19 07:17 36.9 C 65 16 118/72 97 08/07/19 03:47 36.9 C 69 16 108/64 97 08/06/19 23:02 37 C 85 16 127/70 95 PG Care Time/CCT Total # of Minutes Spent Total Time Spent with Patient: Total time spent is greater than 50% in coordination of care (as documented) at patient's floor/unit and/or counseling patient: Coding Level of Care Code 28102 Subseq Hosp Care Lvl 2 Diagnoses Calculus of distal right ureter N20.1
--- NOTE | 2019-08-07 13:11 | Anesthesiology Progress Note ---
Date of Service August 07, 2019 Anesthesia Post Procedure Vital Signs Vital Signs: Temp Pulse Pulse Resp BP Pulse Ox 08/07/19 07:17 36.9 C 65 16 118/72 97 08/07/19 03:47 36.9 C 69 16 108/64 97 08/06/19 23:02 37 C 85 16 127/70 95 08/06/19 21:21 37.1 C 85 20 124/67 96 08/06/19 18:50 37 C 76 16 125/66 96 08/06/19 17:51 37 C 77 16 116/69 96 08/06/19 17:20 36.9 C 90 16 123/75 95 08/06/19 16:50 36.6 C 80 16 116/72 94 08/06/19 16:40 36.5 C 78 15 118/66 98 08/06/19 16:30 85 15 117/63 99 08/06/19 16:20 69 15 103/58 L 100 08/06/19 16:10 70 17 100/59 L 100 08/06/19 16:04 36.2 C L 84 18 121/67 100 08/06/19 14:30 37.2 C 73 18 121/65 98 Pain Intensity Right Flank: Pain Intensity: 2 Perineal: Pain Intensity: 4 Notes Mental Status: alert / awake / arousable and participated in evaluation Patient Amnestic to Procedure: Yes Nausea / Vomiting: see Notes below Pain: adequately controlled Airway Patency, RR, SpO2: stable & adequate BP & HR: stable & adequate Hydration State: stable & adequate Anesthetic Complications: no major complications apparent and Pt Satisfied with anesthetic care
--- NOTE | 2019-08-07 18:29 | Discharge Summary ---
Date of Service August 07, 2019 Admission HPI Per Admitting Provider Ms. Jaci Saenz is a 49 year old woman with past medical history significant for fibromyalgia, palindromic rheumatism, allergies, asthma, proteinuria. Patient is on as needed steroids for allergies. Uses albuterol inhaler occasionally, maybe once a week or so. who is here today for intractable flank pain. Patient started to have back pain that moved down into her flank. This started around six thirty tonight.Patient quickly started to have nausea and non bilious non bloody vomiting. Pain is made worse by certain positions laying down but it still is painful both intermittently with sharp pains (8-9/10) and constantly with at least a 4/10 pain. Decided to come into emergency department around 9- 9:30. On admission to ED patient was hemodynamically stable in severe pain. Urinalysis revealing hematuria, renal function wnl, CT obtained showing 6mm obstructing stone with mild hydroureteronephrosis. Pain relief achieved with hydromophone and morphine. Had her appendix out at 34 no complications. Lives with and kids, all healthy. Does not smoke cigarettes, no marijuana use, no alcohol use. Principal Diagnosis Nephrolithiasis S/P Stent Discharge Exam Constitutional WD/WN, vitals as above Eyes + anicteric sclerae Neck trachea midline Respiratory normal respiratory effort, lungs clear to auscultation Cardiovascular RRR, no murmur, no edema Gastrointestinal (Abdomen) Inspection/Auscultation: normal bowel sounds Percussion/Palpation: abdomen soft; abdomen nontender Musculoskeletal no cyanosis or clubbing, extremities motor strength 5/5 Skin no rashes, warm and dry Neurologic moves all extremities Psychiatric A+Ox3, euthymic affect Genitourinary + CVA tenderness (mild R sided) Discharge Data Allergies Allergy/AdvReac Type Severity Reaction Status Date / Time Sulfa (Sulfonamide Allergy Unknown Unknown Verified 08/05/19 22:23 Antibiotics) fentanyl AdvReac Unknown Nausea/Vomi Verified 08/05/19 22:23 ting prednisone AdvReac Unknown Panic Verified 08/05/19 22:23 attack Consultations 08/06/19 00:03 ED Decision to Admit Stat 08/06/19 01:51 Consult Urology Routine Procedures Performed Operation Date: 08/06/19 15:10 Actual Procedures p Cystoscopy, Right Retrograde, semi-ridged Ureteroscopy, Laser Lithotripsy(Right) - Damien Warner MD s Right Stent Placement(Right) - Damien Warner MD Ordered Studies 08/05/19 21:52 CT abd pelvis wo con Stat 08/06/19 15:00 FL retrograde includes kub Routine Hospital Course (1) Calculus of distal right ureter: - CT - 6 mm obstructing calculus in the distal R ureter located just above the vesicoureteral junction with moderate R hydroureteronephrosis - S/P Cystoscopy with Stent on 08/05 - UCx with multiple organisms - treated with pre-op Cipro and will complete Cipro 500 mg BID x 3 days - Urology following - plan to F/U as outpatient for stent removal (2) Allergic rhinitis due to other allergen: - STABLE - Continue Albuterol PRN; Cetirizine 10 mg daily (3) Proteinuria: - STABLE - follows with Dr. Lopes -- Thought possibly related to underlying glomerular disease - Continue Losartan 100 mg daily Disposition: From home ; Urology F/U; can defer close PCP F/U during coronavirus isolation precautions and can seek care if needed for change in status Total Time Total Time Spent Total Time Spent (In Minutes): Greater than 30 minutes Discharge Plan Discharge Items Patient Disposition: Home - Self-Care Reason For Visit: NEPHROLITHIASIS, HYDRONEPHROSIS Discharge Diagnosis: Kidney Stone with Stent Condition on Discharge: Good Activity: Resume your previous activity Non-emergency contact: Primary Care Provider Call non-emergency contact if: you have any medication questions, your symptoms worsen and you have a fever Follow-up/Referrals: Jerel Gee MD [Primary Care Provider] - (Does not need post-hospital follow-up) Diet: Regular Addtl Attending Provider Instructions: Right Kidney Stone: - You had a scope with a stent placed due to a stone that was causing some backflow of urine. - Your urine culture looks like it has more skin contamination more then anything. However given the stone and procedure. Will continue Ciprofloxacin 500 mg twice a day for three days. Start this today. - YOu will follow-up with the Urologist in regards to the stent and treatment going forward. - Drink plenty of fluids and use Tylenol as needed for pain - Overall there is no restrictions for you just take it easy. You can get some blood in your urine given the stent. Some people can get some cramping pain with the stent. However if the pain gets worse please call your Urologist office Home Medications: - Continue your home medications as previously prescribed. We did not make changes to these Pending Studies at Discharge: No Stand-Alone Forms: My [facility], Smoking Cessation Medications and DC Order Prescriptions: New ciprofloxacin HCl 500 mg tablet 500 mg PO BID 3 Days Qty: 6 RF: 0 Continued gabapentin 100 mg capsule 200 mg PO QPM Qty: 180 RF: 1 melatonin 5 mg capsule 5 mg PO HS PRN (Reason: Sleep) RF: 0 albuterol sulfate [Ventolin HFA] 90 mcg/actuation HFA aerosol inhaler 2 puffs INH Q6H PRN (Reason: Shortness Of Breath Or Wheezing) RF: 0 acetaminophen 500 mg tablet 1,000 mg PO Q6H PRN (Reason: Pain) RF: 0 Prilosec OTC 20 mg Tablet,Delayed Release (Dr/Ec) 20 mg PO BID PRN (Reason: Acid Reflux) RF: 0 citalopram 40 mg tablet 40 mg PO QPM RF: 0 montelukast 10 mg tablet 10 mg PO QPM RF: 0 losartan 100 mg tablet 100 mg PO QPM RF: 0 norelgestromin-ethin.estradiol 150-35 mcg/24 hr patch weekly 1 patch topical Q7D RF: 0 levocetirizine 5 mg tablet 5 mg PO QPM RF: 0 Qvar RediHaler 80 mcg/actuation HFA aerosol breath activated 2 puffs INH BID PRN (Reason: Shortness Of Breath) RF: 0 No Action prednisone 2.5 mg tablet 2.5 mg PO DAILY PRN (Reason: Arthritis Flares) Qty: 20 RF: 5 Discharge Orders: Discharge Order (Routine); Ordered 08/07/19 Ordered By: Karli Ibarra/Other Patient Handouts: Kidney Stones, Kidney Stones Prevent Admission Data Admit Date/Time: 08/06/19 00:47 Attending Provider: Palmer Suarez Admit Provider: Narinder Claire Primary Care Provider: Jerel Gee V. Other Providers: Tristan William ; Krzysztof Wright Other Interventions: Discharge Summary Assessment (RN) Last Done: 08/07/19 12:11 DC Date/Time DO NOT enter until pt leaves facility: 08/07/19 13:09 Supervising Physician Co-Signing Physician Notes Attending note: patient seen and examined with Karli Amanda PA-C. I agree with her discharge summary. I personally reviewed the labs and imaging findings. patient feeling well, no pain eating well, no fevers - Right ureteral stone, s/p ureteral stent will d/c on Cipro for three days follow up closely with urology for stent removal Coding Level of Care Code D/C Day Management >30 mins Diagnoses Calculus of distal right ureter N20.1 Allergic rhinitis due to other allergen J30.89 Proteinuria R80.9
--- NOTE | 2019-08-09 05:58 | Billing Data ---
Date of Service August 09, 2019 Coding Level of Care Code 23804 Initial Inpt Care Lvl 2
== END 2019-08-07 13:09 | disposition home or self-care (01) | DRG 661 ==
LOC: ED 21:13 → SUATTDRO 08-06 00:47 → 3W 08-06 00:47